=== PATIENT | male | born 1955 | race Caucasian/White ===

== ENCOUNTER → 2017-12-06 | Outpatient (CLI) | payer BC ==
[~2017-12-06] MED LIST: BISO1TAB41 PO; DAPA1TAB5 PO; DICL50TA6 PO; DICL75TA2 PO; INSU100I10 SQ; LEVO500T2; METF750T2 PO; OLME20TA21
--- NOTE | 2017-12-06 09:32 | Diagnostic Imaging Report ---
INDICATION: Left ophthalmic artery cholesterol embolism. FINDINGS: Carotid Doppler study performed in routine fashion with color flow Doppler and waveform analysis. There is minor plaquing in the carotid bifurcation on the right side. There is no significant stenosis hemodynamically. ICA/CCA systolic velocity ratio is 1.1 on the right side and 1.1 on the left side. Both vertebrals show antegrade flow. Parameters based on the consensus panel Mercer-Scale and Doppler ultrasound criteria published April 2003, Radiology, Volume 229. DOPPLER (peak systolic velocity M/S Right Left CCA .71 .74 ICA Proximal .59 .58 ICA Mid .60 .77 ICA Distal .75 .81 RATIO 1.1 1.1 ECA 1.05 .90 VERT .55 .33 IMPRESSION: Minor plaquing in the carotid bifurcation on the right side. No significant stenosis hemodynamically. Both vertebrals are patent with antegrade flow. Dictated by: Dictated on workstation # [id number]
== END ==
LOC: RAD 07:46
PROVIDERS: ATTEND Internal Medicine
DX: I65.21 Occlusion and stenosis of right carotid artery (principal); H34.9 Unspecified retinal vascular occlusion
CPT/HCPCS: 93880

== ENCOUNTER → 2020-11-26 | Outpatient (CLI) | payer MEDICARE ==
--- NOTE | 2020-11-26 12:32 | Diagnostic Imaging Report ---
INDICATION: Right leg pain. Right leg venous Doppler study was performed in the routine fashion with color flow Doppler and waveform analysis. FINDINGS: The right common femoral vein, superficial femoral vein, popliteal vein and visualized portion of the tibial veins show normal compressibility and venous flow patterns. There is normal augmentation. IMPRESSION: No evidence of deep vein thrombosis of the major veins of the right leg. Dictated by: Dictated on workstation # [id number]
== END ==
LOC: RAD 10:54
PROVIDERS: ATTEND Nurse Practitioner Family
DX: M79.604 Pain in right leg (principal); R60.0 Localized edema

== ENCOUNTER → 2021-07-04 | Outpatient (CLI) | payer MEDICARE | LOC: LABNPT 07:25 | PROVIDERS: ATTEND Orthopaedic Surgery | DX: Z20.822 Contact with and (suspected) exposure to COVID-19 (principal) | CPT/HCPCS: 87635 ==